=== PATIENT | female | born 1995 | race African-American/Black ===

== ENCOUNTER 2017-11-08 22:10 | Observation (INO) | payer OTHER ==
[~2017-11-08] VITALS: Ht 167.6 cm; Wt 75.3 kg
[2017-11-08] MEDS ORDERED: LACTATED RINGERS 1,000 ML IV SCH (23:00)
[2017-11-08 23:42] LABS: CLARITY URINE CLEAR (CLEAR); COLOR URINE YELLOW (YELLOW); KETONES URINE NEGATIVE (NEGATIVE); LEUKOCYTE ESTERASE URINE 2+ (NEGATIVE); NITRITE URINE NEGATIVE (NEGATIVE); OCCULT BLOOD URINE 3+ (NEGATIVE); PH URINE 6.5 (4.5-8.0); PROTEIN URINE NEGATIVE (NEGATIVE); SPECIFIC GRAVITY URINE 1.009 (1.005-1.030)
[2017-11-09] MEDS ORDERED: PNV1TABL76 PO (00:02)
[2017-11-09 00:20] LABS: *BARBITURATES SCREEN URINE NEGATIVE (NEGATIVE)
[2017-11-09 00:21] LABS: *AMPHETAMINES SCREEN URINE NEGATIVE (NEGATIVE); *BENZODIAZEPINES SCREEN URINE NEGATIVE (NEGATIVE); *COCAINE SCREEN URINE NEGATIVE (NEGATIVE); CANNABINOID URINE SCREEN NEGATIVE (NEGATIVE); METHADONE URINE SCREEN NEGATIVE (NEGATIVE); OPIATES URINE SCREEN NEGATIVE (NEGATIVE); PHENCYCLIDINE URINE SCREEN NEGATIVE (NEGATIVE)
[2017-11-09] MEDS ORDERED: METRONIDAZOLE 500MG TABLET PO SCH (04:19)
== END 2017-11-09 07:40 | disposition home or self-care (01) ==
LOC: L&D 22:10
PROVIDERS: ADMIT Obstetrics & Gynecology; ATTEND Obstetrics & Gynecology
DX: O46.93 Antepartum hemorrhage, unspecified, third trimester (principal); O36.8130 Decreased fetal movements, third trimester, not applicable or unspecified; Z3A.29 29 weeks gestation of pregnancy
CPT/HCPCS: 76805; 76818; 80305; 81003; 87086; 96360; 96361; G0378; J7120; 99281

== ENCOUNTER 2024-10-25 04:34 | Emergency (ER) | payer OTHER ==
[~2024-10-25] VITALS: Ht 165.1 cm; Wt 86.0 kg
[~2024-10-25 04:34] MED LIST: PNV1TABL76 PO
[2024-10-25 04:39] VITALS: O2SAT 98
[2024-10-25 05:10] LABS: BASOPHILS % 0.4 % (0.0-2.0); EOSINOPHILS % 3.8 % (0.0-5.0); HEMATOCRIT. 37.8 % (36.0-48.0); HEMOGLOBIN. 12.2 g/dL (12.0-16.0); MEAN CORPUSCULAR HEMOGLOBIN 29.4 pg (28.0-32.0); MEAN CORPUSCULAR HGB CONC 32.4 g/dL (31.0-37.0); MEAN CORPUSCULAR VOLUME 90.5 fL (81.0-99.0); MEAN PLATELET VOLUME 8.1 fl (7.4-10.4); NEUTROPHILS % 53.8 % (40.0-76.0); PLATELET 344 x1000/uL (130-400); RED BLOOD CELL COUNT 4.17 mill/uL (4.2-5.4); RED CELL DISTRIBUTION WIDTH 14.1 % (11.6-14.6); WHITE BLOOD COUNT 9.6 x1000/uL (4.5-11.0)
[2024-10-25 05:20] LABS: CHLORIDE 105 mEq/L (98-107); POTASSIUM 4.1 mEq/L (3.5-5.1); SODIUM 140 mEq/L (136-145)
[2024-10-25 05:21] LABS: CARBON DIOXIDE 26 mEq/L (21-32)
[2024-10-25 05:22] LABS: CALCIUM 9.6 mg/dL (8.7-10.4)
[2024-10-25 05:27] LABS: CREATININE 0.9 mg/dL (0.6-1.0); GLUCOSE 100 mg/dL (70-105); UREA NITROGEN BLOOD 10 mg/dL (9-23)
[2024-10-25 05:43] LABS: HCG SCREEN POSITIVE
[2024-10-25] MEDS ORDERED: TOPUD PO (07:23)
[2024-10-25 07:37] VITALS: BP 128/72; PULSE 75; RESP 18; TEMP 37.1; O2SAT 100
== END 2024-10-25 07:37 | disposition home or self-care (01) ==
LOC: ER 04:34
DX: O20.0 Threatened abortion (principal); Z79.899 Other long term (current) drug therapy; Z3A.27 27 weeks gestation of pregnancy
CPT/HCPCS: 36415; 76801; 80048; 81025; 84702; 84703; 85025; 86850; 86900; 99284

== ENCOUNTER 2025-01-14 16:53 | Emergency (ER) | payer OTHER ==
[~2025-01-14] VITALS: Ht 162.6 cm; Wt 86.0 kg
[~2025-01-14 16:53] MED LIST changes: +TOPUD PO
[2025-01-14 16:58] VITALS: O2SAT 100
[2025-01-14 17:27] LABS: CLARITY URINE CLEAR (CLEAR); COLOR URINE YELLOW (YELLOW); GLUCOSE URINE NEGATIVE (NEGATIVE); KETONES URINE TRACE (NEGATIVE); LEUKOCYTE ESTERASE URINE NEGATIVE (NEGATIVE); NITRITE URINE NEGATIVE (NEGATIVE); OCCULT BLOOD URINE NEGATIVE (NEGATIVE); PROTEIN URINE TRACE (NEGATIVE)
[2025-01-14 17:48] LABS: BACTERIA URINE NONE SEEN; RBC URINE NONE SEEN /hpf (0-2); SQUAMOUS EPITHELIAL CELL URINE RARE /lpf (RARE/1+); WBC URINE 0-2 /hpf (0-2)
[2025-01-14] MEDS: ONDANSETRON 4MG ODT PO ONE (18:53)
[2025-01-14] MEDS: ACETAMINOPHEN 325MG TABLET PO ONE (18:53)
[2025-01-14 20:15] LABS: BASOPHILS % 0.2 % (0.0-2.0); EOSINOPHILS % 2.8 % (0.0-5.0); HEMATOCRIT. 35.5 % (36.0-48.0); HEMOGLOBIN. 11.7 g/dL (12.0-16.0); LYMPHOCYTES % 26.6 % (20.0-50.0); MEAN CORPUSCULAR HEMOGLOBIN 29.6 pg (28.0-32.0); MEAN CORPUSCULAR HGB CONC 32.9 g/dL (31.0-37.0); MEAN CORPUSCULAR VOLUME 89.8 fL (81.0-99.0); MEAN PLATELET VOLUME 8.2 fl (7.4-10.4); MONOCYTES % 8.4 % (2.0-8.0); PLATELET 322 x1000/uL (130-400); RED BLOOD CELL COUNT 3.96 mill/uL (4.2-5.4); WHITE BLOOD COUNT 12.3 x1000/uL (4.5-11.0)
[2025-01-14 20:21] LABS: CHLORIDE 105 mEq/L (98-107); POTASSIUM 4.2 mEq/L (3.5-5.1); SODIUM 137 mEq/L (136-145)
[2025-01-14 20:22] LABS: CARBON DIOXIDE 24 mEq/L (21-32)
[2025-01-14 20:27] LABS: CREATININE 0.7 mg/dL (0.6-1.0); GLUCOSE 92 mg/dL (70-105)
[2025-01-14 20:28] LABS: UREA NITROGEN BLOOD 9 mg/dL (9-23)
[2025-01-14 20:29] LABS: ALANINE AMINOTRANSFERASE 7 IU/L (10-49); ALBUMIN 4.3 g/dL (3.2-4.8); ASPARTATE AMINOTRANSFERASE 11 IU/L (<34)
[2025-01-14 20:30] LABS: BILIRUBIN DIRECT < 0.1 mg/dL (<=3.0); BILIRUBIN TOTAL 0.2 mg/dL (0.1-1.0); PROTEIN TOTAL 6.8 g/dL (6.0-8.3)
[2025-01-14 21:26] VITALS: BP 122/76; PULSE 71; RESP 20; TEMP 36.7; O2SAT 100
== END 2025-01-14 21:27 | disposition home or self-care (01) ==
LOC: ER 16:53
DX: O26.891 Other specified pregnancy related conditions, first trimester (principal); R10.30 Lower abdominal pain, unspecified; M54.9 Dorsalgia, unspecified; R09.81 Nasal congestion; N89.8 Other specified noninflammatory disorders of vagina; Z79.899 Other long term (current) drug therapy
CPT/HCPCS: 36415; 76801; 80048; 80076; 81003; 81025; 84702; 85025; 99284; Q0162

== ENCOUNTER 2025-02-17 20:40 | Emergency (ER) | payer OTHER ==
[~2025-02-17] VITALS: Ht 165.1 cm; Wt 91.0 kg
[2025-02-17 20:53] VITALS: O2SAT 99
[2025-02-17 21:28] LABS: CLARITY URINE CLEAR (CLEAR); COLOR URINE YELLOW (YELLOW); GLUCOSE URINE NEGATIVE (NEGATIVE); KETONES URINE 1+ (NEGATIVE); LEUKOCYTE ESTERASE URINE NEGATIVE (NEGATIVE); NITRITE URINE NEGATIVE (NEGATIVE); OCCULT BLOOD URINE NEGATIVE (NEGATIVE); PH URINE 6.5 (4.5-8.0); PROTEIN URINE NEGATIVE (NEGATIVE); SPECIFIC GRAVITY URINE 1.026 (1.005-1.030); UROBILINOGEN URINE 1.0 E.U./dL (0.2-1.0)
[2025-02-17 21:34] LABS: BASOPHILS % 0.1 % (0.0-2.0); EOSINOPHILS % 3.1 % (0.0-5.0); HEMATOCRIT. 35.9 % (36.0-48.0); HEMOGLOBIN. 12.0 g/dL (12.0-16.0); LYMPHOCYTES % 22.8 % (20.0-50.0); MEAN PLATELET VOLUME 8.1 fl (7.4-10.4); MONOCYTES % 9.7 % (2.0-8.0); NEUTROPHILS % 64.3 % (40.0-76.0); PLATELET 288 x1000/uL (130-400); RED BLOOD CELL COUNT 4.09 mill/uL (4.2-5.4); RED CELL DISTRIBUTION WIDTH 13.7 % (11.6-14.6)
[2025-02-17 21:46] LABS: CREATININE 0.7 mg/dL (0.6-1.0); UREA NITROGEN BLOOD 9 mg/dL (9-23)
[2025-02-17 22:27] LABS: ASPARTATE AMINOTRANSFERASE 13 IU/L (<34); BILIRUBIN DIRECT < 0.1 mg/dL (<=3.0); BILIRUBIN TOTAL 0.2 mg/dL (0.1-1.0); PROTEIN TOTAL 6.9 g/dL (6.0-8.3)
[2025-02-18] MEDS ORDERED: ONDA-239 PO (01:09)
[2025-02-18 01:17] VITALS: BP 109/67; PULSE 86; RESP 14; TEMP 36.8; O2SAT 99
== END 2025-02-18 01:32 | disposition home or self-care (01) ==
LOC: ER 20:40
DX: O21.1 Hyperemesis gravidarum with metabolic disturbance (principal); Z3A.13 13 weeks gestation of pregnancy; Z79.899 Other long term (current) drug therapy
CPT/HCPCS: 36415; 76801; 80048; 80076; 81003; 81025; 84702; 85025; 99284